=== PATIENT | male | born 1990 | race Caucasian/White ===

== ENCOUNTER 2020-07-30 09:18 | Emergency (ER) | payer MEDICAID, OTHER, SELFPAY ==
[~2020-07-30] VITALS: Ht 177.8 cm; Wt 123.5 kg
[2020-07-30] MEDS ORDERED: EFFE150C2 PO (09:25)
[2020-07-30] MEDS ORDERED: methylPREDNISolone 125MG 2ML VIAL IV ONE (10:15)
[2020-07-30] MEDS ORDERED: diphenhydrAMINE 50MG/ML VIAL (J1200) IV ONE (10:15)
[2020-07-30] MEDS ORDERED: FAMOTIDINE INJ 20MG/2ML VIAL (S0028 PER 1) IVP ONE (10:15)
[2020-07-30 13:15] VITALS: BP 112/58
== END 2020-07-30 14:25 | disposition home or self-care (01) ==
LOC: M ED 09:18
DX: T78.40XA Allergy, unspecified, initial encounter (principal); Y92.9 Unspecified place or not applicable; Y93.9 Activity, unspecified; F41.9 Anxiety disorder, unspecified; Z79.899 Other long term (current) drug therapy
CPT/HCPCS: 96374; 96375; 99285; J1200; J2930

== ENCOUNTER 2021-06-23 10:45 | Emergency (ER) | payer OTHER, SELFPAY ==
[~2021-06-23] VITALS: Ht 177.8 cm; Wt 115.9 kg
[~2021-06-23 10:45] MED LIST: EFFE150C2 PO
--- OUTSIDE RECORDS SUMMARY | 2021-06-23 10:53 | CCD ---
Author Author [facility] Organization [facility] Address Unknown Phone Unavailable Care Team Providers Care Friend Of The Court Name Role Phone Genie Vigil COTTON PICKER Unavailable Unavailable Genie Vigil COTTON PICKER Unavailable Unavailable Genie Vigil COTTON PICKER Unavailable Unavailable Genie Vigil COTTON PICKER Unavailable Unavailable Genie Vigil COTTON PICKER Unavailable Unavailable Genie Vigil COTTON PICKER Unavailable Unavailable Genie Vigil COTTON PICKER Unavailable Unavailable Genie Vigil COTTON PICKER Unavailable Unavailable Genie Vigil COTTON PICKER Unavailable Unavailable Genie Vigil COTTON PICKER Unavailable Unavailable Genie Vigil COTTON PICKER Unavailable Unavailable Genie Vigil COTTON PICKER Unavailable Unavailable Genie Vigil COTTON PICKER Unavailable Unavailable Genie Vigil COTTON PICKER Unavailable Unavailable Yaritza, Genie COTTON PICKER Unavailable Unavailable Yaritza, Genie COTTON PICKER Unavailable Unavailable Yaritza, Genie COTTON PICKER Unavailable Unavailable Yaritza, Genie COTTON PICKER Unavailable Unavailable Yaritza, Genie COTTON PICKER Unavailable Unavailable Yaritza, Genie COTTON PICKER Unavailable Unavailable Yaritza, Genie COTTON PICKER Unavailable Unavailable Yaritza, Genie COTTON PICKER Unavailable Unavailable Yaritza, Genie COTTON PICKER Unavailable Unavailable Ayritza, Genie COTTON PICKER Unavailable Unavailable Yaritza, Genie COTTON PICKER Unavailable Unavailable Yaritza, Genie COTTON PICKER Unavailable Unavailable Yaritza, Genie COTTON PICKER Unavailable Unavailable Yaritza, Genie COTTON PICKER Unavailable Unavailable Yaritza, Genie COTTON PICKER Unavailable Unavailable Yaritza, Genie COTTON PICKER Unavailable Unavailable Yaritza, Genie COTTON PICKER Unavailable Unavailable Yaritza, Genie COTTON PICKER Unavailable Unavailable Yaritza, Genie COTTON PICKER Unavailable Unavailable Yaritza, Genie COTTON PICKER Unavailable Unavailable Yaritza, Genie COTTON PICKER Unavailable Unavailable Yaritza, Genie COTTON PICKER Unavailable Unavailable Hayden Joy MD Unavailable Unavailable Morgan, August COATES Unavailable Unavailable Eddie, August COATES Unavailable Unavailable August Morgan MD Unavailable Unavailable Morgan, August COATES Unavailable Unavailable Morgan, August COATES Unavailable Unavailable Morgan, August COATES Unavailable Unavailable Sissy, A Fanny PA Unavailable Unavailable Sissy, A Fanny PA Unavailable Unavailable Sissy, A Fanny PA Unavailable Unavailable Sissy, A Fanny PA Unavailable Unavailable Sissy, A Fanny PA Unavailable Unavailable Sissy, A Fanny PA Unavailable Unavailable Sissy, A Fanny PA Unavailable Unavailable Sissy, A Fanny PA Unavailable Unavailable Sissy, A Fanny PA Unavailable Unavailable Sissy, A Fanny PA Unavailable Unavailable Sissy, A Fanny PA Unavailable Unavailable Sissy, A Fanny PA Unavailable Unavailable Sissy, A Fanny PA Unavailable Unavailable Sissy, A Fanny PA Unavailable Unavailable Sissy, A Fanny PA Unavailable Unavailable Sissy, A Fanny PA Unavailable Unavailable Sissy, A Fanny PA Unavailable Unavailable Sissy, A Fanny PA Unavailable Unavailable Sissy, A Fanny PA Unavailable Unavailable Sissy, A Fanny PA Unavailable Unavailable Sissy, A Fanny PA Unavailable Unavailable Sissy, A Fanny PA Unavailable Unavailable Sissy, A Fanny PA Unavailable Unavailable Sissy, A Fanny PA Unavailable Unavailable Sissy, A Fanny PA Unavailable Unavailable Sissy, A Fanny PA Unavailable Unavailable Sissy, A Fanny PA Unavailable Unavailable Sissy, A Fanny PA Unavailable Unavailable Sissy, A Fanny PA Unavailable Unavailable Sissy, A Fanny PA Unavailable Unavailable Sissy, A Fanny PA Unavailable Unavailable Sissy, A Fanny PA Unavailable Unavailable Sissy, A Fanny PA Unavailable Unavailable Sissy, A Fanny PA Unavailable Unavailable Sissy, A Fanny PA Unavailable Unavailable Sissy, A Fanny PA Unavailable Unavailable Sissy, A Fanny PA Unavailable Unavailable Sissy, A Fanny PA Unavailable Unavailable Sissy, A Fanny PA Unavailable Unavailable Sissy, A Fanny PA Unavailable Unavailable Sissy, A Fanny PA Unavailable Unavailable Sissy, A Fanny PA Unavailable Unavailable Sissy, A Fanny PA Unavailable Unavailable Sissy, A Fanny PA Unavailable Unavailable Sissy, A Fanny PA Unavailable Unavailable Sissy, A Fanny PA Unavailable Unavailable Sissy, A Fanny PA Unavailable Unavailable Sissy, A Fanny PA Unavailable Unavailable Sissy, A Fanny PA Unavailable Unavailable Sissy, A Fanny PA Unavailable Unavailable Sissy, A Fanny PA Unavailable Unavailable Sissy, A Fanny PA Unavailable Unavailable Sissy, A Fanny PA Unavailable Unavailable Re-disclosure Warning The records that you are about to access may contain information from federally-assisted alcohol or drug abuse programs. If such information is present, then the following federally mandated warning applies: This information has been disclosed to you from records protected by federal confidentiality rules (42 CFR part 2). The federal rules prohibit you from making any further disclosure of this information unless further disclosure is expressly permitted by the written consent of the person to whom it pertains or as otherwise permitted by 42 CFR part 2. A general authorization for the release of medical or other information is NOT sufficient for this purpose. The Federal rules restrict any use of the information to criminally investigate or prosecute any alcohol or drug abuse patient.The records that you are about to access may contain highly sensitive health information, the redisclosure of which is protected by Article 27-F of the [facility] Public Health law. If you continue you may have access to information: Regarding HIV / AIDS; Provided by facilities licensed or operated by the [facility] Office of Mental Health; or Provided by the [facility] Office for People With Developmental Disabilities. If such information is present, then the following [facility] mandated warning applies: This information has been disclosed to you from confidential records which are protected by state law. State law prohibits you from making any further disclosure of this information without the specific written consent of the person to whom it pertains, or as otherwise permitted by law. Any unauthorized further disclosure in violation of state law may result in a fine or long-term sentence or both. A general authorization for the release of medical or other information is NOT sufficient authorization for further disc losure. Allergies and Adverse Reactions Type Description Substance Reaction Status Data Source(s ) Propensity to adverse reactions PHENERGAN PHENERGAN muscle stiffness and twitching [facility] Drug allergy fluoxetine fluoxetine headaches [facility] Drug allergy promethazine promethazine dystonic reaction MO [facility] Family History Family Member Name Family Member Gender Family Member Status Date o f Status Description Data Source(s) Unknown Condition [facility] Unknown Condition [facility] Unknown Condition [facility] Unknown Condition [facility] Unknown Condition [facility] Unknown Condition [facility] Unknown Condition [facility] Unknown Condition [facility] Encounters Encounter Providers Location Date Indications Data Source(s ) Emergency Attender: August Morgan MDConsultant: Genie Vigil NP 12/07/2020 02:57:00 PM EDT - 12/07/2020 04:11:00 PM EDT [facility] Patient discharged. Emergency Attender: Hayden Joy MD 08/13 12:08:00 AM EST - 08/26/2020 03:13:00 AM EST SOB, NO TASTE OR SMELL,R/O COVID [facility] SOB, NO TASTE OR SMELL,R/O COVID Patient discharged. Outpatient Attender: Fanny Cervanteserrer: Fanny SALDIVAR 05/10/2020 08:04:00 AM EDT - 05/10/2020 08:41:00 AM EDT [facility] Immunizations Vaccine Date Status Description Data Source(s) COVID-19 VACCINE Pfizer 05/30/2021 12:00:00 AM EDT completed [facility] Vaccine Series Complete: NOThis Data was Submitted to [facility] Via [employer]. Medications Medication Brand Name Start Date Product Form Dose Route Admi nistrative Instructions Pharmacy Instructions Status Indications Reaction Description Data Source(s) 24 HR venlafaxine 150 MG Extended Releas e Oral Capsule Venlafaxine (Effexor Xr) 150 mg capsule,extended release 24hr Venlafaxine (Effexor Xr) 150 mg capsule,extended release 24hr 07/28/2020 02:57:23 PM EST [address] [facility] Arm Brace (Wrist Brace Large) [facility] 05/10/2020 08:40:13 AM EDT [address] [facility] Arm Brace (Wrist Brace Large) [facility] 05/10/2020 08:40:13 AM EDT [address] [facility] Famotidine 40 MG Oral Tablet Famotidine 05/10/2020 08:39:41 AM EDT 40 MG completed [facility] Famotidine 40 MG Oral Tablet Famotidine 05/10/2020 08:39:41 AM EDT 40 MG active [facility] meloxicam 15 MG Oral Tablet Meloxicam Meloxicam 05/10/2020 08:37 :53 AM EDT MG [address] [facility] meloxicam 15 MG Oral Tablet Meloxicam Meloxicam 05/10/2020 08:37 :53 AM EDT MG completed [facility] 24 HR venlafaxine 150 MG Extended Releas e Oral Capsule Venlafaxine (Effexor Xr) 150 mg capsule,extended release 24hr Venlafaxine (Effexor Xr) 150 mg capsule,extended release 24hr 04/13/2020 02:44:16 PM EDT 150 MG [facility] cefpodoxime 200 MG Oral Tablet Cefpodoxime Cefpodoxime 05/29/2019 11:08:38 AM EDT 200 MG completed [facility] cefpodoxime 200 MG Oral Tablet Cefpodoxime Cefpodoxime 05/29/2019 11:08:38 AM EDT 200 MG [facility] Azithromycin 500 MG Oral Tablet [Zithrom ax] Azithromycin (Zithromax) 500 mg tablet Azithromycin (Zithromax) 500 mg tablet 05/29/2019 11:06:46 AM ED T 500 MG completed [facility] Azithromycin 500 MG Oral Tablet [Zithrom ax] Azithromycin (Zithromax) 500 mg tablet Azithromycin (Zithromax) 500 mg tablet 05/29/2019 11:06:46 AM ED T 500 MG completed [facility] Insurance Providers Payer name Policy type / Coverage type Policy ID Covered democrat ID Covered democrat's relationship to murphy Policy Murphy Plan Information SELF PAY COLE PAY Patient COLE PAY POMCO [id number] SP [id number] LUCERO [id number] SP [id number] [id number] [id number] SP [id number] UNHC AMERICHOICE XIX -[id number] 18 [id number] [place] [id number] 18 [id number] [place] [id number] S [id number] MEDICAID [id number] SP [id number] SELF PAY UNAVAILABLE UNAVAILA BLE UNHC COMMUNITY PLAN MCDO [id number] SP [id number] [facility](MCA[facility]) P [id number] S [id number] [facility]) P [id number] S [id number] [facility]) P UNAVAILABLE S UNAVAILABLE [facility] [id number] SP [id number] MEDICAID -O/P EMERGENCY ROOM [id number] SELF PAY ONLY [id number] SP [id number] Problems, Conditions, and Diagnoses Code Display Name Description Problem Type Effective Dates Data Source(s) [id number] Allergy, unspecified, initial encounter Allergy, unspecified, initial encounter Diagnosis 12/07/2020 02:57:00 PM EDT [facility] L509 Urticaria, unspecified Urticaria, unspecified Diagnosi s 12/07/2020 02:57:00 PM EDT [facility] R21 Rash and other nonspecific skin eruption Rash and other nonspecific skin eruption Diagnosis 12/07/2020 02:57:00 PM EDT [facility] Surgeries/Procedures Procedure Description Date Indications Data Source(s) Plain chest X-ray (procedure) 08/26/2020 12:10:[address] [facility] 08/26/2020 12:00:00 AM EST L [facility] Influenza-Like Illness (PCR) 08/26/2020 12:00:[address] [facility] Results ID Date Data Source [id number] 12/07/2020 02:57:00 PM EDT [facility] 1 OrderSheet [facility] Emergency Department [address] [place] [address] Phone #: ext- [phone] 12/07/2020 14:56 Patient: CHELA GARCIA Sex: M : 1990 Age: 30yWEIGHT:113.3 kg (S) HEIGHT:70 inches (S) BMI:35.8ALLERGIES: PhenothiazinesCHIEF COMPLAINT: allergic rx, itchingDIAGNOSIS: Urticaria, Immune hypersensitivity reactionLAB ORDERSOrder Description Priority Entered Acknowledged InitialedDIAGNOSTIC STUDY ORDERSOrder Description Priority Entered Acknowledged InitialedMEDICATION/IV/DRIP/FLUID ORDERSOrder Description Priority Entered Acknowledged InitialedSOLU-Medrol IVP 15:02 12/07/2020 15:05 Glenis,125 mg August Morgan R.N.Pepcid IVPB 20 15:02 12/07/2020 15:10 Glenis,mg/50mL (NOW x1, August Morgan R.N.Infuse over 30minutes.)EPINEPHrine IM 15:03 12/07/2020 15:10 Glenis1:1000 (1mg/1mL) August Morgan R.N.Amp: 0.3 mg (NOWx1, HIGH ALERTMEDICATION)NS IV 1000 mL 15:04 12/07/2020 15:11 Glenis,Bolus: : Bolus 1000 August Morgan R.N.mL (X1)GENERAL ORDERSOrder Description Priority Entered Acknowledged Initialed[Electronically signed by Frank Galvin R.N. (16:11 12/07/2020)][Electronically signed by August Morgan (16:15 12/07/2020)][Elect ronically locked by Frank Galvin R.N. (16:12/07/2020)] Name Value Range Interpretation Code Description Data Nelly rce(s) Supporting Document(s) ID Date Data Source [id number] 12/07/2020 02:57:00 PM EDT [facility] 1 Medication Reconciliation Report [facility] Emergency Department [address] [place] [address] Phone #: [phone] soc- [phone] 12/07/2020 14:56 Patient: CHELA GARCIA Sex: M : 1990 Age: 30yWeight: 113.3 kgHeight/Length: 70 in.BMI: 35.8ALLERGIES: PhenothiazinesThe patient's Home Medications are listed below:THE FOLLOWING MEDICATIONS NEED TO BE RECONCILED: Effexor XR OralThe source(s) of the original Home Medication information:Not obtained.The following Medications were given to the patient in the Emergency Department:Solu-Medrol [IVP] IVP 125 mg, administered: 15:05 1Pepcid [IVPB] IVPB bolus 0, then 20 mg 100 mL/hr, administered: 15:10 1Epinephrine [IM] IM 0.3 mg, administered: 15:10 12/07/2020NS [IV] IV Fluids bolus 0, then 1000 mL/hr, administered: 15:11 12/07/2020The following Medications were prescribed to the patient:prednisone 20 mg tablet Take 2 tablet once a day -- Dispense 10 tablet. Refills: 0. Substitutionpermitted.Pharmacy - [facility] [phone] [facility] [address] [place] [address]. FaxNumber: [phone].EpiPen 0.3 mg/0.3 mL injection, auto-injector Administer 1 pen injector single dose for 1 days --Dispense 2 Pen injector. Refills: 0. Substitution permitted.Pharmacy - [facility] [address] [place] [address] ; [place] [address]. . -- August Morgan Name Value Range Interpretation Code Description Data Nelly rce(s) Supporting Document(s) ID Date Data Source [id number] 12/07/2020 02:57:00 PM EDT [facility] 1 Medication Administration Record [facility] Emergency Department [address] [place] [address] Phone #: ext- [phone] 12/07/2020 14:56 Patient: CHELA GARCIA Sex: M : 1990 Age: 30yWeight: 113.3 kgHeight/Length: 70 inBMI: 35.8ALLERGIES: Ph enothiazines Date/Time Medication Administered Medication OrderedGiven SOLU-MEDROL [IVP] SOLU-Medrol IVP 125 mg15:05 12/07/2020 (METHYLPREDNISOLONE SODIUMFrank Galvin R.N. SUCC) Dose: 125 mg IVP Site: #1 left forearmStart PEPCID [IVPB] Pepcid IVPB 20 mg/50mL (NOW15:10 12/07/2020 Dose: 20 mg IVPB x1, Infuse over 30 minutes.)Frank Galvin R.N. Rate: 100 mL/hr over 30 minute(s)---- Dispensed: 50 mL bagStop Site: #1 left [id number] 12/07/2020Frank Galvin R.N.Given EPINEPHRINE [IM] EPINEPHrine IM 1:1000 (1mg/1mL)15:10 12/07/2020 Dose: 0.3 mg IM Amp: 0.3 mg (NOW x1, HIGHFrank Galvin R.N. ALERT ME DICATION)Start NS [IV] NS IV 1000 mL Bolus: : Bolus [id number] 12/07/2020 Dose: IV Fluids mL (X1)Frank Galvin R.N. Rate: 1000 mL/hr over 60 minute(s)---- Dispensed: 1000 mL bagStop Site: #1 left [id number] 12/07/2020Frank Galvin R.N. Name Value Range Interpretation Code Description Data Nelly rce(s) Supporting Document(s) ID Date Data Source [id number] 12/07/2020 02:57:00 PM EDT [facility] 1 General Instructions [facility] Emergency Department [address] [place] [address] Phone #: ext- [phone] 12/07/2020 14:56 Patient: CHELA GARCIA Sex: M : 1990 Age: 30yAcute urticaria secondary to unknown cause.Generalized allergic reaction with hives of unknown cause.INSTRUCTIONSWarnings: GENERAL WARNINGS: Return or contact your physician immediately if your conditionworsens or changes unexpectedly, if not improving as expected, or if other problems arise.Prescription Medications:prednisone 20 mg tablet Take 2 tablet once a day -- Dispense 10 tablet. Refills: 0. Substitutionpermitted.Pharmacy - [facility] [phone] - [address] [place] [address]. Phone: .EpiPen 0.3 mg/0.3 mL injection, auto-injector Administer 1 pen injector single dose for 1 days --Dispense 2 Pen injector. Refills: 0. Substitution permitted.Pharmacy - [facility] [address] [address]. FaxNumber: .Understanding of the discharge instructions verbalized by patient.Follow-up with: Fanny Sheehan, , , [facility], , [place], [address] Follow up in two days as needed. Call for an appointment. ADDITIONAL INFORMATIONHives (Adult)Hives are pink or red bumps on the skin. These bumps are also known as wheals. The bumps canitch, burn, or sting. Hives can occur anywhere on the body. They vary in size and shape and can formin clusters. Individual hives can appear and go away quickly. New hives may develop as old onesfade. Hives are common and usually harmless. They are not contagious. Occasionally, hives are asign of a serious allergy.Hives are often caused by an allergic reaction. They may occur from: Certain foods, such as shellfish, nuts, tomatoes, or berries 2 General Instructions [facility] Emergency Department [address] [place] [address] Phone #: ext- [phone] 12/07/2020 14:56 Patient: CHELA GARCIA Sex: M : 1990 Age: 30y Contact with something in the environment, such as pollens, animals, or mold Certain medicines Sun or cold air Viral infections, such as a cold, the flu, or strep throatIf the hives continue to come and go over many weeks without any other symptoms (chronic hives),the cause may be very hard to figure out.You may be prescribed medicines to ease swelling and itching. Follow all instructions when usingthese medicines. The hives will usually fade in a few days. But they can last for weeks or months.Home careFollow these tips: Try to find the cause of the hives and eliminate it. Discuss possible causes with your healthcare provider. Your healthcare provider may ask you to keep track of the food you eat and your lifestyle to help find the cause of the hives. Don't scratch the hives. Scratching will delay healing. To reduce itching, apply cool, wet compresses to the skin. Dress in soft, loose cotton clothing. Don't bathe in hot water. This can make the itching worse. Apply an ice pack or cool pack wrapped in a thin towel to your skin. This will help reduce redness and itching. But if your hives were caused by exposure to cold, then do not apply more cold to them. You may use over-the counter antihistamines to reduce itching. Some older antihistamines, such as diphenhydramine and chlorpheniramine, are inexpensive. But they need to be taken often and may make you sleepy. They are best used at bedtime. Don't use diphenhydramine if you have glaucoma or have trouble urinating because of an enlarged prostate. Newer antihistamines, such as loratadine, cetirizine, levocetirizine, and fexofenadine, are generally more expensive. But they tend to have fewer side effects. They can be taken less often. Another type of antihistamine is used to treat heartburn. This type includes ranitidine, nizatidine, famotidine, and cimetidine. These are sometimes used along with the above antihistamines if a single medicine is not working. If the hives are severe and you do not respond well to other medicines, you may be given a steroid, such as prednisone, to take for a short time. Follow all instructions carefully when taking this medicine. Tell your healthcare provider about any side effects. 3 General Instructions [facility] Emergency Department [address] [place] [address] Phone #: ext- [phone] 12/07/2020 14:56 Patient: CHELA GARCIA Sex: M : 1990 Age: 30yFollow-up careFollow up with your healthcare provider if your symptoms don't get better in 2 days. Ask your providerabout allergy testing if you have had a severe reaction or have had several episodes of hives. Allergytesting may help figure out what you are allergic to. You may need blood tests, a urine test, or skintests.When to seek medical adviceCall your healthcare provider right away if any of these occur: Fever of 100.4F (38.0C) or higher, or as directed by your healthcare provider Redness, swelling, or pain Foul-smelling fluid coming from the rashCall 911Call 911 if any of the following occur: Swelling of the face, throat, or tongue Trouble breathing or swallowing Dizziness, weakness, or fainting 1999- [address] [employer]. [address] [place] [address]. All rights reserved. This information is not intended as asubstitute for professional medical care. Always follow your healthcare professional's instructions.General Allergic ReactionsAn allergic reaction is a set of symptoms caused by an allergen. An allergen is something that causesyour immune system to react abnormally. It releases various chemicals. These include histamin e.Histamine causes swelling and itching. An allergic reaction may affect the entire body. This is called ageneral allergic reaction. Often symptoms affect only one part of the body. This is called a localallergic reaction.You are having an allergic reaction. Almost anything can cause one. Different people are allergic todifferent things. It is usually something that you ate or swallowed, came into contact with by getting orputting it on your skin or clothes, or something you breathed in the air. This can be very annoying andsometimes scary.Most people think of allergic reactions when they have a rash or itchy skin. Other symptoms caninclude: Itching of the eyes, nose, and roof of the mouth 4 General Instructions [facility] Emergency Department [address] [place] [address] Phone #: ext- [phone] 12/07/2020 14:56 Patient: CHELA GARCIA Sex: M : 1990 Age: 30y Runny or stuffy nose Watery eyes Sneezing or coughing A blocked feeling in the ear Red, raised, itchy rash called hives Red and purple spots Rash, redness, welts, blisters Itching, burning, stinging, pain Dry, flaky, cracking, scaly skinSevere symptoms include: Swelling of the face, lips, or other parts of the body Hoarse voice Trouble swallowing, feeling like your throat is closing Trouble breathing, wheezing Nausea, vomiting, diarrhea, stomach cramps Feeling faint or lightheaded, rapid heart rateSometimes the cause may be obvious. But there are so many things that can cause a reaction thatyou may not be able to figure it out. The most important things to help find your allergen are toremember: When it started What you were doing at the time or just before that What activities you were involved in If you were exposed to anything newBelow are some common causes of allergies. Some of these can cause severe general allergicreactions. Others can cause mild to moderate symptoms. But remember that almost anything cancause a reaction. You may not even be aware that you came into contact with one of these things: Dust, mold, pollen Plants (common ones are poison yovany and poison oak, but there are many others) 5 General Instructions [facility] Emergency Department [address] [place] [address] Phone #: ext- [phone] 12/07/2020 14:56 Patient: CHELA GARCIA Sex: Tu : 1990 Age: 30y Animals Foods such as shrimp, shellfish, peanuts, milk products, gluten, and eggs Food colorings, flavorings, and additives Insect bites or stings such as bees, mosquitoes, fleas, and ticks Medicines such as penicillin, sulfa medicines, aspirin, and ibuprofen. But any medicine can cause a reaction. Jewelry such as nickel or gold. This can be new, or something you've worn for a while, including zippers and buttons. Latex such as in gloves, clothes, toys, balloons, or some tapes. Some people allergic to latex may also have problems with foods like bananas, avocados, kiwi, papaya, or chestnuts. Lotions, perfumes, cosmetics, soaps, shampoos, skincare products, nail products Chemicals or dyes in clothing, linen, technical asst, hair dyes, soaps, iodineMany viruses and common colds can cause a rash that is not an allergic reaction. Sometimes it ishard to tell the difference between allergies, sensitivity, or an intolerance to something. This isespecially true with food. Many things can cause diarrhea, vomiting, stomach cramps, and skinirritation.Home careThe goal of treatment is to help relieve the symptoms and get you feeling better. The rash will usuallyfade over several days. But it can sometimes last a couple of weeks. Over the next couple of days,there may be times when it gets a little worse, and then better again. Here are some things to do: If you know what you are allergic to, stay away from it. Future exposures may cause similar or sometimes worse symptoms. 6 General Instructions [facility] Emergency Department [address] [place] [address] Phone #: ext- [phone] 12/07/2020 14:56 Patient: CHELA GARCIA Sex: M : 1990 Age: 30y Don't wear tight clothing and stay away from anything that heats up your skin such as hot showers or baths, and direct sunlight. Heat will make itching worse. An ice pack will relieve local areas of intense itching and redness. To make an ice pack, put ice cubes in a plastic bag that seals at the top. Wrap it in a thin, clean towel. Don't put the ice directly on the skin because it can damage the skin. Oral diphenhydramine is an jngf-ckk-prgysux antihistamine sold at pharmacies and grocery stores. Unless a prescription antihistamine was given, diphenhydramine may be used to reduce itching if large areas of the skin are involved. It may make you sleepy. So be careful using it in the daytime or when going to school, working, or driving. Note: Don't use diphenhydramine if you have glaucoma or if you are a man with trouble urinating because of an enlarged prostate. There are other antihistamines that won't make you so sleepy. These are good choices for daytime use. Ask your healthcare provider or pharmacist for suggestions. Don't use diphenhydramine cream on your skin unless prescribed. It may cause a worse reaction in some people. To help prevent an infection, don't scratch the affected area. Scratching may worsen the reaction and damage your skin. It can also lead to an infection. Always check the affected areas for signs of an infection. Call your healthcare provider and ask what you can use to help decrease the itching. To decrease your exposure to allergens, try the following: o Use heat-steam to clean your home. o Use high-efficiency particulate (HEPA) vacuums and filters. o Stay away from food and pet triggers. o Kill any cockroaches and use pest control to keep further infestations from happening. o Clean your house often.Follow-up careFollow up with your healthcare provider, or as advised. If you had a severe reaction today, or if youhave had several mild to medium allergic reactions in the past, ask your provider about allergytesting. This can help you find out what you are allergic to. If you had a severe reaction that includeddizziness, fainting, or trouble breathing or swallowing, ask your provider about carryingauto-injectable epinephrine.Call [phone] General Instructions [facility] Emergency Department [address] [place] [address] Phone #: ext- [phone] 12/07/2020 14:56 Patient: GABRIELLARuthieCHELA Sex: Tu : 1990 Age: 30yCall 911 if any of these occur: Trouble breathing or swallowing, wheezing Cool, moist, pale skin Shortness of breath Hoarse voice or trouble speaking Confusion Very drowsy or trouble awakening Fainting or loss of consciousness Rapid heart rate Feeling of dizziness or weakness or a sudden drop in blood pressure Feeling of doom Feeling lightheaded Severe nausea or vomiting, or diarrhea Seizure Swelling in the face, eyelids, lips, mouth, throat, or tongue DroolingWhen to seek medical adviceCall your healthcare provider or get medical care right away if any of these occur: Spreading areas of itching, redness, or swelling Nausea or stomach cramps or abdominal pain Continuing or recurring symptoms Spreading areas of redness, swelling, or itching Signs of infection at the affected site: o Spreading redness o Increased pain or swelling o Fluid or colored drainage from the site 8 General Instructions [facility] Emergency Department [address] [place] [address] Phone #: ext- [phone] 12/07/2020 14:56 Patient: CHELA GARCIA Sex: M : 1990 Age: 30y o Fever of 100.4F (38C) or above lasting for 24 to 48 hours, or as directed by your provider [employer]. [address] [place] [address]. All rights reserved. This information is not intended as asubstitute for professional medical care. Always follow your healthcare professional's instructions. You have been given the following additional information: Hives (Adult) General Allergic Reactions(Electronically signed by August Morgna 12/07/2020 16:15) Name Value Range Interpretation Code Description Data Nelly rce(s) Supporting Document(s) ID Date Data Source [id number] 12/07/2020 02:57:00 PM EDT [facility] 1 Clinical Report - Nurses [facility] Emergency Department [address] [place] [address] Phone #: ext- [phone] 12/07/2020 14:56 Patient: CHELA GARCIA Sex: M : 1990 Age: 30yTRIAGEArrived by private vehicle. Historian: patient.Acuity: LEVEL 2.Chief Complaint: ALLERGIC REACTION, SKIN RASH, ITCHING and HIVES and SWELLING andDIFFICULTY BREATHINGOnset. (45 minutes ago). 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 (x 4).SEPSIS SCREEN: SIRS SCREEN NEGATIVE. SEPSIS SCREEN NEGATIVE. No suspected or confirmedsigns of infection present.JOLEEN COMA SCORE: 15- eyes open- spontaneous (4); best verbal response- oriented (5); bestmotor response- obeys commands (6). --15:06 12/07/20 Saleem Sandoval RN14:59 12/07/20. BP: 100/57 taken manually. MAP: 71. HR: 130. RR: 22. O2 saturation: 94% on room air.Temp: 96.8 F. Pain level now: 0/10. --15:06 12/07/20 Saleem Sandoval RN.Weight: 113.3 kg stated. Height/Length: 70 inches Per Patient. BMI: 35.8. --14:59 12/07/20 Saleem Sandoval RN.MedicationsEffexor XR Oral. --15:03 12/07/20 Saleem Sandoval RN.AllergiesPhenothiazines. --15:03 12/07/20 Saleem Sandoval RN.HistoryPAST MEDICAL HX: Immunizations: up-to-date.SOCIAL HX: Never smoker. Light tobacco smoker (cigarette)- less than 1/2 a pack per day. No alcoholuse or drug use. He was offered HIV testing but declined and hepatitis C testing but declined. He hasnot traveled outside the [place]Infectious disease exposure: No infectious disease exposure. The patient was not exposed to Coronavirus.SELF HARM ASSESSMENT: Self harm assessment was performed. The patient answered "no" to thequestion(s) "Have you recently felt down, depressed, or hopeless?", "Do you have thoughts of harming or 2 Clinical Report - Nurses [facility] Emergency Department [address] [place] [address] Phone #: ext- [phone] 12/07/2020 14:56 Patient: CHELA GARCIA Sex: M : 1990 Age: 30y killing yourself?", "Do you have a plan for harming or killing yourself?", "Have you recently had thoughts about harming or killing others?", "Do you have any dangerous items in your possession?", "Have you noticed less interest or pleasure in doing things?", "Are you here because you tried to hurt yourself?" and "Have you ever tried to hurt yourself before today?". ABUSE ASSESSMENT: No report of abuse. NUTRITIONAL RISK ASSESSMENT: The nutritional risk assessment revealed no deficiencies. FUNCTIONAL ASSESSMENT: Functional assessment: no impairments noted. LEARNING NEEDS ASSESSMENT: The learning needs assessment revealed no barriers. FALL RISK ASSESSMENT: Fall risk assessment completed. No risk factors identified. SKIN INTEGRITY ASSESSMENT: Skin integrity risk assessment completed. No skin integrity risk identified. --15:06 12/07/20 Saleem Sandoval RN. FAMILY HX: No significant family medical history. --15:17 12/07/20 August Morgan. Interventions To treatment room. --15:06 12/07/20 Saleem Sandoval RN.PHYSICAL ASSESSMENTGENERAL / NEURO / PSYCH: Alert. Appears anxious and in distress. Oriented X 4.HEENT: Pupils equal, round and reactive to light.RESPIRATORY: Respirations not labored.CVS: Cardiac rhythm: sinus tachycardia; (134).GI / : Abdomen nontender.SKIN: Skin rash present. Urticaria present. Increased warmth present. Erythema present. --15: Frank Galvin R.N. 15:17 12/07/20. BP: 123/78. MAP: 93. HR: 114. RR: 18. O2 saturation: 99%. Temp: deferred. Pain level now: 0/10. --15:20 12/07/20 Frank Galvin R.N.NURSING PROGRESS NOTES15:12/07/2020 Site #1 started via IV in the left forearm with an 20g angiocath; one attempt. --15: Frank Galvin R.N. 15:12/07/2020 Solu-Medrol (methylPREDNISolone Sodium Succ) IVP 125 mg given over 3 minute(s) via site #1. --15:12/07/20 Frank Galvin R.N. advertising layout worker, pulse oximeter and NIBP monitor placed on patient; wheelchair driver- Lead II; monitor alarms on. Patient gowned. Head of bed elevated. Reassurance given. Call light placed in reach. 3 Clinical Report - Nurses [facility] Emergency Department [address] [place] [address] Phone #: ext- [phone] 12/07/2020 14:56 Patient: CHELA GARCIA Sex: M : 1990 Age: 30y Side rails up x 2. Bed placed in lowest position. Brakes of bed on. Patient ready for evaluation- ED physician notified. --15:07 12/07/20 Saleem Sandoval RN 15:10 12/07/2020 Started 20 mg of Pepcid IVPB in bag #1 50 mL; at 100 mL/hr over 30 minute(s) via site #1. --15:10 12/07/20 Frank Galvin R.N. 15:10 12/07/2020 Epinephrine IM 0.3 mg given. --15:10 12/07/20 Frank Galvin R.N. 15:11 12/07/2020 Started bag #1 1000 mL IV Fluids NS; at 1000 mL/hr over 60 minute(s) via site #1 --15:11 12/07/20 Frank Galvin R.N. 15:29 12/07/20. BP: 140/80. MAP: 100. HR: 96. RR: 27. O2 saturation: 98%. --15:29 12/07/20 [facility], [facility] Tech1 16:06 12/07/2020 Pepcid IVPB via IV site #1 Discontinued: bag #1 upon discharge. Total amount infused: 50 mL. --16:06 12/07/20 Frank Galvin R.N. 16:06 12/07/2020 IV Fluids NS via IV site #1 Discontinued: bag #2 infused upon discharge. Total amount infused: 800 mL. --16:06 12/07/20 Frank Galvin R.N.DISPOSITION / DISCHARGE No learning barriers present. Patient verbalized understanding. Written instructions provided in Dutch. The patient was discharged by the physician. He was discharged home. He left ambulatory and via private vehicle. Patient driving. --16:06 12/07/20 Frank Galvin R.N. 16:05 12/07/20. BP: 142/86. MAP: 104. HR: 84. RR: 16. O2 saturation: 99%. Temp: deferred. Pain level now: 0/10. --16:06 12/07/20 Frank Galvin R.N.Locked/Released at 12/07/2020 16:11 by Frank Galvin R.N. Name Value Range Interpretation Code Description Data Nelly rce(s) Supporting Document(s) ID Date Data Source [id number] 12/07/2020 02:57:00 PM EDT [facility] 1 Clinical Report - Physicians/Mid Levels [facility] Emergency Department [address] [place] [address] Phone #: ext- [phone] 12/07/2020 14:56 Patient: CHELA GARCIA [facility]#: [id number] Sex: M : 1990 Age: 30y Time Seen: 15:02 12/07/2020. Arrived- By private vehicle. Historian- patient.HISTORY OF PRESENT ILLNESS Chief Complaint: ALLERGIC REACTION and ITCHING. No cause has been identified. No recent medication, insect bite or food exposure. Was not recently exposed to poison yovany or poison oak. The patient has had a skin rash, itching and dizziness but not had swelling or trouble swallowing. No difficulty breathing or fainting episodes. This started just prio r to arrival and is still present. The patient was not assessed by EMS prior to arrival. The patient received treatment prior to arrival. (Patient was at work when he suddenly developed rash all over. felt lightheaded. Took 4 benadryl prior to arrival. no new exposure or new medications. 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 Similar symptoms previously. Patient has had similar symptoms several times. Recent medical care: Not recently seen/assessed.REVIEW OF SYSTEMSNo eye problems or irritation, sore throat or throat or cough. No chills, enlarged lymph nodes, headache,weakness or chest pa in. No palpitations, abdominal pain, vomiting, urinary frequency or fever. Nomuscle aches, photophobia, palpitations, diarrhea or nausea. No vomiting or weakness. The patient hashad skin rash. All other systems reviewed and are negative.PAST HISTORYSee nurses notes.SOCIAL HISTORYNever smoker.FAMILY HISTORYNo significant family medical history.ADDITIONAL NOTESThe nursing notes have been reviewed.PHYSICAL EXAMVital Signs: 12/07/2020 14:59 BP: 100/57. MAP: 71. HR: 130. RR: 22. O2 saturation: 94% on room air.Temp: 96.8 F. Pain level now: 0/10.Appearance: Alert. Oriented X3. No acute distress. (voice is clear). 2 Clinical Report - Physicians/Mid [facility] Emergency Department [address] [place] [address] Phone #: ext- [phone] 12/07/2020 14:56 [id number] Sex[facility] : 1990 Age: 30y Head and Neck: Normal external inspection. Eyes: Pupils equal, round and reactive to light. ENT: Ears normal. Pharynx normal. Voice normal. Neck: Neck supple. CVS: Tachycardia. Normal heart rhythm. Heart sounds normal. Respiratory: No respiratory distress. Painless inspiration. Breath sounds normal. No decreased air movement. Abdomen: Nontender. No organomegaly. Skin: No cyanosis. Skin warm and dry. No erythema or diaphoresis. Extremities: Normal external inspection. Extremities nontender. Skin: Urticaria. No rash. Skin rash. The rash is confluent and urticarial. The rash is generalized and rash present on the trunk. Rash present on the right upper extremity and left upper extremity. Not vesicular. Rash present on the left lower extremity. Neuro: Oriented X 3. No motor deficit. No sensory deficit.PROGRESS AND PROCEDURESCourse of Care: 15:18 12/07/20. Diffuse urticarial rash. No signs of anaphylaxis 15:34 12/07/20. Pulse is improved. heart rate of 88 bpm. Rash has significantly improved. No airway compromise 16:09 12/07/20. Complete resolution of rash. No tachycardia. BP is 123/78. Old medical records ordered. Disposition: Discharged. Condition: stable.CLINICAL IMPRESSION Acute urticaria secondary to unknown cause. Generalized allergic reaction with hives of unknown cause.INSTRUCTIONS Warnings: GENERAL WARNINGS: Return or contact your physician immediately if your condition worsens or changes unexpectedly, if not improving as expected, or if other problems arise. Prescription Medications: prednisone 20 mg tablet Take 2 tablet once a day -- Dispense 10 tablet. Refills: 0. Substitution permitted. Pharmacy - [facility] [id number] [facility] [address] [facility] [address] [place] [address] ; [place] [address]. . 3 Clinical Report - Physicians/Mid Levels [facility] Emergency Department [address] [place] [address] Phone #: ext- [phone] 12/07/2020 14:56 Patient: CHELA GARCIA Sex: M : 1990 Age: 30y EpiPen 0.3 mg/0.3 mL injection, auto-injector Administer 1 pen injector single dose for 1 days -- Dispense 2 Pen injector. Refills: 0. Substitution permitted. Pharmacy - [facility] [id number] [place] [address]. . Understanding of the discharge instructions verbalized by patient. Follow-up with: Fanny Sheehan, , , [facility], , [place], [address] Follow up in two days as needed. Call for an appointment.(Electronically signed by August Morgan 12/07/2020 16:15) Name Value Range Interpretation Code Description Data Nelly rce(s) Supporting Document(s) ID Date Data Source [id number] 08/26/2020 03:30:00 AM EST [facility] [address] [place] [address] [phone] NAME SEX PT STATUS ACCOUNT NUMBER CHELA GARCIA [facility] ER [id number] ORDERING PHYSICIAN LOCATION MEDICAL RECORD NO. Hayden Joy MD ER [id number] ATTENDING PHYSICIAN DATE OF DATE OF EXAM/TIME Fanny Sheehan RPA 1990 08/26/209 TYPE / EXAM Xray Chest One View REASON FOR EXAM cough, sob, loss of taste and smell Clinical History/Indication for Exam: cough, sob, loss of taste and smell RADIOGRAPH OF THE CHEST 1 VIEW INDICATION: cough, sob, loss of taste and smell COMPARISON: No relevant prior studies available. FINDINGS: Lungs: There are no active lung infiltrates. Pleural space: Unremarkable. No pneumothorax. Heart: Borderline cardiomegaly. Mediastinum: Unremarkable. Bones/joints: Unremarkable. Soft tissues: Bilateral nipple rings are noted. IMPRESSION: 1. No active lung infiltrates or pneumonia or Covid pneumonitis. 2. Borderline cardiomegaly. REPORT SIGNATURE ON FILE 08/26/2020 (03:30 Eastern Time ) Signed by: Cristian Rangel M.D. Reported By Cristian Rangel MD on 08/26/20329 Signed By Cristian Rangel MD on 08/26/20329 Date Time CC: Fanny Sheehan; Cristian Rangel MD Techn: PALHE Trans Dt/Tm: Trans by: DT Prt Dt/Tm: [id number]: Total DLP = 0.00 mGy-cm Fluoroscopy Time (in secs): Name Value Range Interpretation Code Description Data Nelly rce(s) Supporting Document(s) ID Date Data Source [id number] 08/26/2020 01:22:00 AM [facility] Amandeep Gabrielle is a rapid, automated qualita tive anddifferentiation of Influenza type A,B and [id number]-RT-PCR testNORMAL VALUE IS "NOT DETECTED".Limitations of the amandeep gabrielle Influenza A/B & [id number]-6dplzf method.Modifications to manufacturers recommendation and proceduresmay alter performance of the test.Negative results do not preclude Influenza A,B or SARS- ZBV7ulbqwmjpdy and should not be used as the sole basis fortreatment or other management decisions. Results from theCobas Gabrielle Influenza A/B & COV2 should be interpeted inconjunction with other laboratory and clinical dataavailable to the clinician.False negative results may occur if a specimen is improperlycollected, transported or handled. False negatives may occurif inadequate numbers of organisms are present in thespecimen.This test has not been evaluated for patients without signsand systoms of influenza and SARS-COV-2 infection.This assay has not been evaluated for patients receivingintranasal administered influenza vaccine.This assay has not been evaluated for immunocompromisedindividuals.This test cannot rule out diseases caused by other bacterialor viral pathogens.SARS-CoV-2 RNA Resp Ql SHRUTHI+probe Name Value Range Interpretation Code Description Data Nelly rce(s) Supporting Document(s) ID Date Data Source [id number] 08/26/2020 01:22:00 AM [facility] Amandeep Gabrielle is a rapid, automated qualita tive anddifferentiation of Influenza type A,B and QLTD-[id number]-[id number]-RT-PCR testNORMAL VALUE IS "NOT DETECTED".Limitations of the amandeep gabrielle Influenza A/B & PIPB-FIT-8fsqxk method.Modifications to manufacturers recommendation and proceduresmay alter performance of the test.Negative results do not preclude Influenza A,B or SARS- QYZ3bohzctllkn and should not be used as the sole basis fortreatment or other management decisions. Results from theCobas Gabrielle Influenza A/B & COV2 should be interpeted inconjunction with other laboratory and clinical dataavailable to the clinician.False negative results may occur if a specimen is improperlycollected, transported or handled. False negatives may occurif inadequate numbers of organisms are present in thespecimen.This test has not been evaluated for patients without signsand systoms of influenza and SARS-COV-2 infection.This assay has not been evaluated for patients receivingintranasal administered influenza vaccine.This assay has not been evaluated for immunocompromisedindividuals.This test cannot rule out diseases caused by other bacterialor viral pathogens.SARS-CoV-2 RNA Resp Ql SHRUTHI+probe Name Value Range Interpretation Code Description Data [facility] rce(s) Supporting Document(s) Extended hours FLU/COV2 NAAT GABRIELLE [facility] ID Date Data Source [id number] 08/26/2020 12:24:00 AM [facility] ED Physician Documentation NAME: CHELA GARCIA : 1990 AGE: 29 MR#: [id number] SERVICE DATE: 08/26/[address]: Hayden Joy MD PRIMARY CARE DR: Fanny Sheehan ROOM#: HPI (Adult, General) General Chief Complaint: Multi system (Adult) Stated Complaint: SOB, NO TASTE OR SMELL Resident LTC, travel outisde home, exposure to hot tubs:: No Time Seen by Provider: 08/26/20 00:10 Source: patient Exam Limitations: no limitations History of Present Illness Narrative: This is a pleasant 29M hx of KALA, GERD, tobacco us presents with cc of sob on exertion, loss of taste and smell that he more profoundly noticed today. States hedrank Mountain Dew and could not taste it. He also admits to back aches, myalgias, headaches. No sick contacts. He does mention that he was admitted this past July for a pneumonia and was concerned that he was developing similar symptoms. Denies chest pain, LE swelling, testosterone injections, cough. Has not taken anything for his symptoms. 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 History: Nursing Past Medical History Has Been Reviewed Allergies/Home Meds Allergies Allergy/AdvReac Type Severity Reaction Status Date / Time promethazine [From PHENERGAN] AdvReac Intermediate dystonic Verified 08/26/20 00:50 reaction fluoxetine AdvReac headaches Verified 08/26/20 00:50 Home Medications Medication Instructions Recorded Confirmed Last Taken Type venlafaxine 150 mg 150 mg PO DAILY #90 cap 07/28/20 08/26/20 08/25/20 07:00 Rx capsule,extended release 24 hr PMH (from Triage) Patient Medical History PMH Reviewed/Updated as Needed: Yes PMH/PSH from Triage: Medical History (Updated 08/26/20 @ 03:05 by Hayden Joy MD) Carpal tunnel syndrome on both sides (Medical) G56.03 Community acquired pneumonia (Medical) J18.9 05/2019 - [facility] Generalized anxiety disorder (Medical) F41.1 GERD without esophagitis (Medical 05/11/16) K21.9 Surgical History (Updated 02/04/19 @ 11:51 by [employer] MA) A ppendectomy (Surgical) History of - surgery (Surgical 10/30/14) -No Barretts,hadEG junction biopsy showed mild chronic inflammation History of colonoscopy (Surgical) 2010-normal Hx Drug Resistant Infections Hx MRSA: (Methicillin-resistant Staphylococcus aureus): No Hx VRE (Vancomycin-resistant enterococci): No Hx C.Diff: No Hx CRKP: No Hx Other Resistant Infection?: No Isolation: Standard precautions Hx Recent Travel Out of the country within 10 days (where): No Hx Fever: Yes Hx Fever with a rash?: No Nurse screening for coronavirus: Recent Travel outside the No country (where) Has patient experienced Yes coronavirus symptoms Coronavirus symptoms Shortness of breath,New loss of taste or smel experienced Social History Does patient have suicid al/homicidal thoughts or ideation?: No Are you in a relationship with/Does anyone hit you, yell/swear at you, steal from you?: No Substance Use Hx Alcohol Use: No Hx Substance Use: No Hx Substance Use Treatment: No Smoking Status: Current every day smoker Tobacco Use Years smoked:: 4 Hx Chewing Tobacco Use: No Vaccination History Hx/Date of Tetanus, Diphtheria Vaccination: Yes Hx/Date of Influenza Vaccination: No Hx/Date of Pneumococcal Vaccination: No PFSH Medical History Carpal tunnel syndrome on both sides Community acquired pne umonia Generalized anxiety disorder GERD without esophagitis (05/11/16) Surgical History Appendectomy History of - surgery (10/30/14) History of colonoscopy Family History Mother Diabetes Hyperlipidemia Father Myocardial infarction acute, Onset Age: 42 Heart disease Hyperlipidemia Hypertension Sister No problems noted. PGF No problems noted. Social History Does the Patient have a Healthcare Proxy: No Does Patient have a DNR?: No Does Patient have a Living Will?: No Advance Directives on File or in chart?: No Hx Recent Travel (where): No Smoking Status: Current every day smoker tobacco type: cigarettes quit status: considering quitting alcohol intake: never substance use type: does not use ROS Review of Systems Constitutional: Reports fever, weakness and malaise Eyes: Denies vision change and eye pain ENT: Denies mouth pain, ear discharge, nasal discharge and nasal congestion Respiratory: Reports cough and SOB; Denies sputum Cardiovascular: Denies chest pain, hypertension and edema Gastrointestinal: Denies nausea, vomiting and abdominal pain Musculoskeletal: Denies neck pain Skin/Breasts: Denies rash and lesions Neurologic: Denies weakness, numbness and headache Physical Exam General Limitations: no limitations General appearance: alert and in no apparent distress Head Head exam: Present atraumatic and n ormocephalic Eye Eye exam: Present normal apperance, PERRL and EOMI ENT ENT exam: Present normal exam and normal orophraynx Neck Neck exam: Present normal inspection and tenderness Respiratory Respiratory exam: Present normal lung sounds bilaterally and rales Cardiovascular Cardiovascular Exam: Present regular rate, normal rhythm and normal heart sounds GI/Abdominal GI/Abdominal exam: Present Abd soft, bowel sounds present all quadrents; Absent distended, tenderness, guarding and rebound Extremities Exam Extremities exam: Present normal inspection, Full ROM without tenderness, capillary refill brisk andfull ROM; Absent tenderness Back Exam Back exam: Present normal inspection and full ROM Neurological Exam Neurological exam: Present alert, oriented X3, CN II-XII intact and normal gait; Absent altered Skin Skin exam: Present warm, dry and intact Vital Signs Vital Signs: Vital Signs 08/26/20 00:09 08/26/20 00:33 Temperature 98.5 F 98.5 F Pulse Rate 76 76 Respiratory Rate 20 20 Blood Pressure 156/75 156/75 O2 Sat by Pulse Oximetry 96 96 MDM (comprehensive) Lab Data Labs: Microbiology 08/26/20 00:40 Nasopharyngeal Influenza-Like Illness (PCR) - Final No Organisms Detected 08/26/20 00:40 Nasopharyngeal - Final Medical Decision Making Free Text/Narative:: 29M presenting for myalgia, fever, cough, congestion, back aches and anosmia and lack of taste. Constellation of symptoms are concerning for COVID-19 considering these recent rise in prevalence int region. His CXR does not reveal any CP disease or infiltrates. His COVID 19 PCR result was negative, however, given his symptoms and the loss of taste and smell having a strong correlation with COVID-19, I am concerned that this may be a false negative. He does not exhibit any clinical features of a bacterial infection. His vitals are stable and he felt much better after receiving Motrin and Tylenol. Considering these findings, would recommend that he continue to quarantine and perhaps re-test in one week. MEMO discussed and he verbalized understanding. Plan Visit Medications Administered ED medications:: Medications Discontinued Medications Generic Name Dose Route Start Last Admin Trade Name Freq PRN Reason Stop Dose Admin Acetaminophen 650 mg 08/26/20 00:10 08/26/20 01:32 Acetaminophen 325 Mg Tab PO 08/26/20 00:11 650 mg 1T ONE Administration Ibuprofen 600 mg 08/26/20 00:10 08/26/20 01:31 Ibuprofen 600 Mg Tab PO 08/26/20 00:11 600 mg 1T ONE Administration Other Medications: Discontinued: meloxicam W/FOOD Discontinued Reason: Patient Reported 7.5 - 15 mg (0.5 - 1 x 15 mg) PO QDAY 30 tabs 2RF G56.03 famotidine Discontinued Reason: Patient Reported 40 mg PO BID PRN 60 tabs 2RF heartburn K21.9 arm brace Discontinued Reason: Patient Reported As directed 2 ea 0RF G56.03 Discharge Plan Admission/Discharge Dx Primary DC Diagnosis: Anosmia, URI ED Provider: Hayden Joy ED Status: Discharged Time Seen by Provider: 08/26/20 00:10 Triaged At: 08/26/20 00:09 Condition Condition: Stable Discharge Detail Disposition: Home, Self-Care Discharge Education Printouts: COVID-19 (Coronavirus Disease 2019) (ED) Follow Up Visit/Referrals: Fanny Sheehan RPA-C [Primary Care Provider] - Discharge Problem: URI (upper respiratory infection) Follow Up Care/Instructions Diet/Activity/Wound Care..: As discussed, considering the current COVID-19 Pandemic, your test may be negative due to a low viral load at this time considering your lack of taste and smell and this being such a high association with COVID-19. I would recommend that you still quarantine for 14 days starting today. Continue to take Motrin 600 mg every 6 hours. Continue to take Acetaminophen 650 mg every 6 hours. Follow up with your primary care doctor. *Discharge Patient* Discharge Orders: Discharge Order (Routine); Ordered 08/26/20 Ordered By: Hayden Joy Discharge Date/Time: 08/26/20 03:13 Interventions Interventions: ED Discharge Instructions Last Done: 08/26/20 03:13 Report Signers: <Electronically signed by Hayden Joy MD> Hayden Joy MD 08/26/20 0429 Hayden Joy MD SIGNATURE DA Report Cosigners: D: NOOFA 08/26/2023 T: NOOFA 08/26/2023 CC: Fanny Sheehan Name Value Range Interpretation Code Description Data Nelly rce(s) Supporting Document(s) ID Date Data Source [id number] 08/26/2020 12:00:00 AM EST [facility] Name Value Range Interpretation Code Description Data Nelly rce(s) Supporting Document(s) SARS-CoV2 Rapid PCR Not Detected [facility] This lab was ordered by [facility] and reported by [facility]. ID Date Data Source [id number] 06/23/2020 12:00:00 AM EST [facility] Name Value Range Interpretation Code Description Data Nelly rce(s) Supporting Document(s) 2019-nCoV RNA XXX SHRUTHI+probe-Imp [facility] This lab was ordered by [facility] and reported by [facility]. ID Date Data Source [id number] 05/10/2020 08:07:[address] [facility] Patient Name: CHELA GARCIA DO B: 1990 Sex: M Pt Unit #: [id number] Location:[facility] Provider: Visit Date/Time: 05/10/20 Primary Insurance: Self Pay Secondary Insurance: Intake Vital Signs 05/10/20 08:07 Current Weight 267 lb Weight Measurement Method Standing Scale BP 128/78 Position Sitting Respiration 18 Pulse 74 Temp 98.0 F Temp Source Oral Pulse Oximetry (%) 98 Oxygen Delivery Method room air Intake Visit Reasons: Anxiety Is patient in pain?: No Allergies promethazine [From [facility]] Adverse Reaction (Intermediate, Verified 05/27/19 23:16) dystonic reaction fluoxetine Adverse Reaction (Verified 05/27/19 23:16) headaches Medications arm brace (Wrist Brace Large) As directed famotidine 40 mg PO BID PRN meloxicam 7.5 - 15 mg (0.5 - 1 x 15 mg) PO QDAY venlafaxine ER (Effexor XR) 150 mg PO DAILY PHQ-2/9 Over the last 2 weeks, how often have you been bothered by any of the following problems? 2. Feeling down, depressed, or hopeless: not at all 3. Trouble falling or staying asleep, or sleeping too much: not at all 4. Feeling tired or having little energy: several days 5. Poor appetite or overeating: not at all 6. Feeling bad about yourself - or that you are a failure or have let yourself and your family down:not at all 7. Trouble concentrating on things, such as reading the newspaper or watching television: not at all 8. Moving or speaking so slowly that other people could have noticed? - Or the opposite - being so fidgety or restless that you have been moving around a lot more than usual: not at all If you checked off any problems, how difficult have these problems made it for you to do your work, take care of things at home, or get along with other people?: not difficult at all Source: Developed by Drs. Ean Pedro, Ninfa Bermudez, Lalit Cook and colleagues, with an educational collins from [employer]. HIV Testing Offer - ages 13-64 Requirement for HIV testing offer been met?: Declines today. Pretest education received and acknowledged Coronavirus Screening Screening Have you traveled outside of [facility] [address] [facility] or [facility] in the last 14 days.: No Has patient experienced coronavirus symptoms: No [facility] Medical History (Updated 05/10/20 @ 08:39 by ANNIE Gramajo) Carpal tunnel syndrome on both sides Community acquired pneumonia Generalized anxiety disorder GERD without esophagitis (05/11/16) Surgical History Appendectomy History of - surgery (10/30/14) History of colonoscopy Family History Mother Diabetes Hyperlipidemia Father Myocardial infarction acute, Onset Age: 42 Heart disease Hyperlipidemia Hypertension Sister No problems noted. PGF No problems noted. Social History (Updated 05/10/20 @ 08:27 by ANNIE Gramajo) Does the Patient have a Healthcare Proxy: No Does Patient have a DNR?: No Does Patient have a Living Will?: No Advance Directives on File or in chart?: No Hx Recent Travel (where): No Smoking Status: Current every day smoker tobacco type: cigarettes quit status: considering quitting alcohol intake: never substance use type: does not use HPI Anxiety 29yo male here for f/u on anxiety. Ciro was last seen here over 1yr ago. Ciro was initially scheduled for a physical but he was 17minlast so I advised I would see him for a regular appt and do the physical at a later date. Currently on venlafaxine ER 150mg daily. Overall has been working well for his anxiety. Last nightanxiety was bad - was around 5 kids - his 3 kids and his friends two kids. Had to get away from [facility]. KALA 7 3, PHQ 9 1 Ciro states he has been having numbness both hands RT > LT. 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 States it will botherhim when he is sleeping. Will have to switch hands when he is driving as it will bother him. No weakness. Sometimes RT hand pops and will drop things, be sore for a few hours after. Pain in hands daily, on avg 12/20. No noted swelling. No decreased ROM. No neck pain. Takes tylenol prn. Dad told him he should have his cholesterol checked as his Dad had [place] at 41. Panic attacks: No Social phobia: No Specific phobia: No Generalized anxiety: Yes Generalized anxiety: restlessness/on edge, difficulty concentrating/mind going blank, irritability and muscle tension Previous psychiatric history: No History of suicidal ideation: No History of suicide attempt: No Medically hospitalized: No History of self injurious behavior: No Review of Systems Const Denies chills, Reports fatigue (working 90 hrs/wk), Denies fever(s), Reports headache(s) (seldom), Denies poor appetite and Reports weight gain (16lbs since last o.v.) ENT Reports headache(s) (seldom) Card Denies chest pain Resp Denies cough and Denies wheezing GI Denies abdominal pain, Denies change in stool character, Reports heartburn (2-3x/wk - takes chewabletums w/relief), Denies nausea and Denies vomiting Denies change in libido Neuro Reports headache(s) (seldom) Psych Denies change in appetite, Denies change in libido, Denies depression, Denies difficulty concentrating, Denies auditory hallucinations, Denies irritability, Denies anhedonia, Denies panic attacks, Denies paranoia, Denies visual hallucinations and Denies suicidal ideation Endo Denies change in libido and Reports fatigue (working 90 hrs/wk) Aller/Immun Denies wheezing Exam Const General: cooperative, healthy appearing, comfortable, no acute distress, well developed and well groomed Nutritional Appearance: obese Eyes Conjunctivae: conjunctivae normal EOM: EOM intact bilaterally Neck Neck: no lymphadenopathy Resp Effort Inspection: normal respiratory effort Auscultation: clear to auscultation bilaterally, no crackles, no rhonchi and no wheezes Cardio Rhythm: regular rhythm Heart Sounds: S1 normal and S2 normal Musc Cervical Spine: cervical ROM normal, no cervical muscular tenderness, no pain with cervical ROM and no cervical spinal tenderness Other: (+) PAHLEN MANEUVER, (+) TINEL WRISTS BILAT, 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 (2) Carpal tunnel syndrome on both sides: Status: Chronic Code(s): G56.03 - Carpal tunnel syndrome, bilateral upper limbs SNOMED Code(s): 65125376 Category: Medical Plan - ANNIE Gramajo: Defers nerve conduction study at this time. trial of wrist braces and meloxicam. Advised not to take any other NSAIDs. Discussed possible side effects. Advised to take with food. Medications: New: meloxicam W/FOOD 7.5 - 15 mg (0.5 - 1 x 15 mg) PO QDAY 30 tabs 2RF arm brace (W rist Brace Large) As directed 2 ea 0RF (3) GERD without esophagitis: Status: Chronic Onset Date: 05/11/16 Code(s): K21.9 - Gastro- esophageal reflux disease without esophagitis SNOMED Code(s): 101971614 Category: Medical Plan - ANNIE Gramajo: Famotidine 40mg bid prn for heartburn/reflux. Medications: New: famotidine 40 mg PO BID PRN 60 tabs 2RF heartburn Additional Comments Additional Comments: F/u 2-3months for PE. Labs ordered to do prior to appt. Defers help with quitting smoking at this time. Advised to contact office if questions/concerns arise or s/s do not improve/worsen. Orders Other Medications: Discontinued: azithromycin (Zithromax) Discontinued Reason: MD Order 500 mg PO ONCE 1 tab 0RF TONIGHT cefpodoxime must administer with a meal/food Discontinued Reason: MD Order 200 mg PO BID 10 tabs 0RF Start tonight Other Orders: Orders: CBC W AUTO DIFF 1 Month Z00.00 CMP 1 Month Z00.00 LIPID PANEL 1 Month Z00.00 TSH 1 Month Z00.00 Vitamin D 25-OH 1 Month R53.83 Electronically Signed By: <Electronically signed by Gabriella Irizarry> Date/Time Signed: 05/10/20 0848 Name Value Range Interpretation Code Description Data Nelly rce(s) Supporting Document(s) Procedure Social History Code Duration Value Status Description Data Source(s ) 08/26/2020 12:42:00 AM EST Current every day smoker co mpleted Current every day smoker [facility] Smoking 08/26/2020 12:42:00 AM EST Current every day smoker co mpleted Current every day smoker [facility] 08/26/2020 12:31:19 AM EST No completed No [facility] 08/26/2020 12:31:19 AM EST No completed No [facility] 05/10/2020 08:27:51 AM EDT Current every day smoker co mpleted Current every day smoker [facility] Smoking 05/10/2020 08:27:00 AM EDT Current every day smoker co mpleted Current every day smoker [facility]
[2021-06-23] MEDS ORDERED: LIDOCAINE 2% W/EPINEPHRINE 20ML VIAL **PRES FREE INJ ONE (11:15)
[2021-06-23] MEDS ORDERED: IBUPROFEN 400MG TAB PO ONE (11:20)
[2021-06-23] MEDS ORDERED: BOOSTRIX/ADACEL VACCINE (DIPHTH/PERTUSS/ACELL/TETANUS) 0.5ML SYR IM ONE (11:55)
[2021-06-23] MEDS ORDERED: POLYSPORIN TOPICAL OINTMENT 15GM TOP ONE (11:55)
--- OUTSIDE RECORDS SUMMARY | 2021-06-23 12:32 | CCD ---
Author Author [facility] Organization [facility] Address Unknown Phone Unavailable Care Team Providers Care Painter And Paperhanger Apprentice Name Role Phone Genie Vigil CUSTOMER SERVICE ADVISOR Unavailable Unavailable Genie Vigil CUSTOMER SERVICE ADVISOR Unavailable Unavailable Genie Vigil CUSTOMER SERVICE ADVISOR Unavailable Unavailable Genie Vigil CUSTOMER SERVICE ADVISOR Unavailable Unavailable Genie Vigil CUSTOMER SERVICE ADVISOR Unavailable Unavailable Genie Vigil CUSTOMER SERVICE ADVISOR Unavailable Unavailable Genie Vigil CUSTOMER SERVICE ADVISOR Unavailable Unavailable Genie Vigil CUSTOMER SERVICE ADVISOR Unavailable Unavailable Genie Vigil CUSTOMER SERVICE ADVISOR Unavailable Unavailable Genie Vigil CUSTOMER SERVICE ADVISOR Unavailable Unavailable Genie Vigil CUSTOMER SERVICE ADVISOR Unavailable Unavailable Genie Vigil CUSTOMER SERVICE ADVISOR Unavailable Unavailable Genie Vigil CUSTOMER SERVICE ADVISOR Unavailable Unavailable Genie Vigil CUSTOMER SERVICE ADVISOR Unavailable Unavailable Yaritza, Genie CUSTOMER SERVICE ADVISOR Unavailable Unavailable Yaritza, Genie CUSTOMER SERVICE ADVISOR Unavailable Unavailable Yaritza, Genie CUSTOMER SERVICE ADVISOR Unavailable Unavailable Yaritza, Genie CUSTOMER SERVICE ADVISOR Unavailable Unavailable Yaritza, Genie CUSTOMER SERVICE ADVISOR Unavailable Unavailable Yaritza, Genie CUSTOMER SERVICE ADVISOR Unavailable Unavailable Yaritza, Genie CUSTOMER SERVICE ADVISOR Unavailable Unavailable Yaritza, Genie CUSTOMER SERVICE ADVISOR Unavailable Unavailable Yaritza, Genie CUSTOMER SERVICE ADVISOR Unavailable Unavailable Yaritza, Genie CUSTOMER SERVICE ADVISOR Unavailable Unavailable Yaritza, Genie CUSTOMER SERVICE ADVISOR Unavailable Unavailable Yaritza, Genie CUSTOMER SERVICE ADVISOR Unavailable Unavailable Yaritza, Genie CUSTOMER SERVICE ADVISOR Unavailable Unavailable Yaritza, Genie CUSTOMER SERVICE ADVISOR Unavailable Unavailable Yaritza, Genie CUSTOMER SERVICE ADVISOR Unavailable Unavailable Yaritza, Genie CUSTOMER SERVICE ADVISOR Unavailable Unavailable Yaritza, Genie CUSTOMER SERVICE ADVISOR Unavailable Unavailable Yaritza, Genie CUSTOMER SERVICE ADVISOR Unavailable Unavailable Yaritza, Genie CUSTOMER SERVICE ADVISOR Unavailable Unavailable Yaritza, Genie CUSTOMER SERVICE ADVISOR Unavailable Unavailable Yaritza, Genie CUSTOMER SERVICE ADVISOR Unavailable Unavailable Yaritza, Genie CUSTOMER SERVICE ADVISOR Unavailable Unavailable Hayden Joy MD Unavailable Unavailable [...] is protected by Article 27-F of the [facility] Public Health law. If you continue you may have access to information: Regarding HIV / AIDS; Provided by facilities licensed or operated by the [facility] Office of Mental Health; or Provided by the [facility] Office for People With Developmental Disabilities. If such information is present, then the following [facility] mandated warning applies: This information has been [...] law may result in a fine or mcc sentence or both. A general authorization for the release of medical or other information is NOT sufficient authorization for further disc losure. Allergies and Adverse Reactions Type Description Substance Reaction Status Data Source(s ) Propensity to adverse reactions PHENERGAN PHENERGAN muscle stiffness and twitching [facility] Drug allergy fluoxetine fluoxetine headaches U [facility] Drug allergy promethazine promethazine dystonic reaction MO [facility] Family History Family Member Name Family Member Gender Family Member Status Date o f Status Description Data Source(s) Unknown Condition [facility] Unknown Condition [facility] Unknown Condition [facility] Unknown Condition [facility] Unknown Condition [facility] Unknown Condition [facility] Unknown Condition [facility] Unknown Condition [facility] Encounters Encounter Providers Location Date Indications Data Source(s ) Emergency Attender: August Morgan MDConsultant: Genie Vigil NP 12/07/2020 02:57:00 PM EDT - 12/07/2020 04:11:00 PM EDT [facility] ital Patient discharged. Emergency Attender: Hayden Joy MD 08/13 12:08:00 AM EST - 08/26/2020 03:13:00 AM EST SOB, NO TASTE OR SMELL,R/O COVID [facility] SOB, NO TASTE OR SMELL,R/O COVID Patient discharged. Outpatient Attender: Fanny Cervanteserrer: Fanny SALDIVAR 05/10/2020 08:04:00 AM EDT - 05/10/2020 08:41:00 AM EDT [facility] Immunizations Vaccine Date Status Description Data Source(s) COVID-19 VACCINE Pfizer 05/30/2021 12:00:00 AM EDT completed [facility] Vaccine Series Complete: NOThis Data was Submitted to [facility] [place] [employer]. Medications Medication Brand Name Start Date Product Form Dose Route Admi nistrative Instructions Pharmacy Instructions Status Indications Reaction Description Data Source(s) 24 HR venlafaxine 150 MG Extended Releas e Oral Capsule Venlafaxine (Effexor Xr) 150 mg capsule,extended release 24hr Venlafaxine (Effexor Xr) 150 mg capsule,extended release 24hr 07/28/2020 02:57:23 PM EST 150 MG completed [facility] Arm Brace (Wrist Brace Large) [facility] 05/10/2020 08:40:13 AM EDT 0 active [facility] Arm Brace (Wrist Brace Large) [facility] 05/10/2020 08:40:13 AM EDT 0 completed [facility] Famotidine 40 MG Oral Tablet Famotidine 05/10/2020 08:39:41 AM EDT 40 MG completed [facility] Famotidine 40 MG Oral Tablet Famotidine 05/10/2020 08:39:41 AM EDT 40 MG active [facility] meloxicam 15 MG Oral Tablet Meloxicam Meloxicam 05/10/2020 08:37 :53 AM EDT MG active [facility] meloxicam 15 MG Oral Tablet Meloxicam Meloxicam 05/10/2020 08:37 :53 AM EDT MG completed [facility] 24 HR venlafaxine 150 MG Extended Releas e Oral Capsule Venlafaxine (Effexor Xr) 150 mg capsule,extended release 24hr Venlafaxine (Effexor Xr) 150 mg capsule,extended release 24hr 04/13/2020 02:44:16 PM EDT 150 MG [facility] cefpodoxime 200 MG Oral Tablet Cefpodoxime Cefpodoxime 05/29/2019 11:08:38 AM EDT 200 MG completed [facility] cefpodoxime 200 MG Oral Tablet Cefpodoxime Cefpodoxime 05/29/2019 11:08:38 AM EDT 200 MG [facility] Azithromycin 500 MG Oral Tablet [Zithrom ax] Azithromycin (Zithromax) 500 mg tablet Azithromycin (Zithromax) 500 mg tablet 05/29/2019 11:06:46 AM ED T 500 MG completed [facility] Azithromycin 500 MG Oral Tablet [Zithrom ax] Azithromycin (Zithromax) 500 mg tablet Azithromycin (Zithromax) 500 mg tablet 05/29/2019 11:06:46 AM ED T 500 MG completed [facility] Insurance Providers Payer name Policy type / Coverage type Policy ID Covered constitution party ID Covered constitution party's relationship to murphy Policy Murphy Plan Information SELF PAY COLE PAY Patient COLE PAY POMCO [id number] SP [id number] LUCERO [id number] SP [id number] EMEDNY [id number] SP [id number] UNHC AMERICHOICE XIX -HMO [id number] 18 [id number] [place] [id number] 18 [id number] [place] [id number] S [id number] MEDICAID [id number] SP [id number] SELF PAY UNAVAILABLE UNAVAILA BLE UNHC COMMUNITY PLAN MCDO [id number] SP [id number] [facility](MCAID) P [id number] S [id number] [facility](MCAID) P [id number] S [id number] [facility](MCAID) P UNAVAILABLE S UNAVAILABLE [facility] [id number] SP [id number] MEDICAID -O/P EMERGENCY ROOM [id number] SELF PAY ONLY [id number] SP [id number] Problems, Conditions, and Diagnoses Code Display Name Description Problem Type Effective Dates Data Source(s) [id number] Allergy, unspecified, initial encounter Allergy, unspecified, initial encounter Diagnosis 12/07/2020 02:57:00 PM EDT [facility] L509 Urticaria, unspecified Urticaria, unspecified Diagnosi s 12/07/2020 02:57:00 PM EDT [facility] R21 Rash and other nonspecific skin eruption Rash and other nonspecific skin eruption Diagnosis 12/07/2020 02:57:00 PM EDT [facility] Surgeries/Procedures Procedure Description Date Indications Data Source(s) Plain chest X-ray (procedure) 08/26/2020 12:10:[address] [facility] 08/26/2020 12:00:00 AM EST L [facility] Influenza-Like Illness (PCR) 08/26/2020 12:00:00 AM ES T [facility] Results ID Date Data Source [id number] 12/07/2020 02:57:00 PM EDT [facility] 1 OrderSheet [facility] Emergency Department [address] [place] [address] Phone #: ext- [phone] 12/07/2020 14:56 Patient: [...] rce(s) Supporting Document(s) ID Date Data Source [id number] 12/07/2020 02:57:00 PM EDT [facility] 1 Medication Reconciliation Report [facility] Emergency Department [address] [place] [address] Phone #: [phone]- [phone] 12/07/2020 14:56 Patient: CHELA GARCIA Sex: M [...] Dispense 10 tablet. Refills: 0. Substitutionpermitted.Pharmacy - [facility] [address] [facility] [address] [place] [address]. FaxNumber: .EpiPen 0.3 mg/0.3 mL injection, auto-injector Administer 1 pen injector single dose for 1 days --Dispense 2 Pen injector. Refills: 0. Substitution permitted.Pharmacy - [facility] [address] [place] [address] ; [place] [address]. . -- August Morgan Name Value Range Interpretation Code Description Data Nelly rce(s) Supporting Document(s) ID Date Data Source [id number] 12/07/2020 02:57:00 PM EDT [facility] 1 Medication Administration Record [facility] Emergency Department [address] [place] [address] Phone #: ext- [phone] 12/07/2020 14:56 Patient: CHELA GARCIA Sex: M [...] Dispensed: 50 mL bagStop Site: #1 left ipucpdy75:[id number] 12/07/2020Frank Galvin R.N.Given EPINEPHRINE [IM] EPINEPHrine IM 1:1000 (1mg/1mL)15:10 12/07/2020 Dose: 0.3 mg IM Amp: 0.3 mg (NOW x1, HIGHFrank Galvin R.N. ALERT ME DICATION)Start NS [IV] NS IV 1000 mL Bolus: : Bolus [id number] 12/07/2020 Dose: IV Fluids mL (X1)Frank Galvin R.N. Rate: 1000 mL/hr over 60 minute(s)---- Dispensed: 1000 mL bagStop Site: #1 left :06 12/07/2020Frank Galvin R.N. Name Value Range Interpretation Code Description Data Nelly rce(s) Supporting Document(s) ID Date Data Source [id number] 12/07/2020 02:57:00 PM EDT [facility] 1 General Instructions [facility] Emergency Department [address] [place] [address] Phone #: ext- [phone] 12/07/2020 14:56 Patient: CHELA GARCIA Sex: M [...] Dispense 10 tablet. Refills: 0. Substitutionpermitted.Pharmacy - [facility] [address] [place] [address]. Phone: .EpiPen 0.3 mg/0.3 mL injection, auto-injector Administer 1 pen injector single dose for 1 days --Dispense 2 Pen injector. Refills: 0. Substitution permitted.Pharmacy - [facility] 8763 - [address] [address]. FaxNumber: .Understanding of the discharge instructions verbalized by patient.Follow-up with: Fanny Sheehan, , , [facility], , [place], [address] Follow up in two days as needed. [...] nuts, tomatoes, or berries 2 General Instructions [facility] Emergency Department [address] [place] [address] Phone #: ext- [phone] 12/07/2020 14:56 Patient: [...] about any side effects. 3 General Instructions [facility] Emergency Department [address] [place] [address] Phone #: ext- [phone] 12/07/2020 14:56 Patient: [...] swallowing Dizziness, weakness, or fainting 1999- 2019 [employer]. [address] [place] [address]. All rights reserved. This information is not [...] roof of the mouth 4 General Instructions [facility] Emergency Department [address] [place] [address] Phone #: ext- [phone] 12/07/2020 14:56 Patient: CHELA GARCIA Sex: M [...] there are many others) 5 General Instructions [facility] Emergency Department [address] [place] [address] Phone #: ext- [phone] 12/07/2020 14:56 Patient: [...] products Chemicals or dyes in clothing, linen, corporate administrative assistant, hair dyes, soaps, iodineMany viruses and common [...] or sometimes worse symptoms. 6 General Instructions [facility] Emergency Department [address] [place] [address] Phone #: ext- [phone] 12/07/2020 14:56 Patient: CHELA GARCIA Sex: M [...] damage the skin. Oral diphenhydramine is an ehli-hny-syvdfew antihistamine sold at pharmacies and grocery stores. [...] swallowing, ask your provider about carryingauto-injectable epinephrine.Call [phone] General Instructions [facility] Emergency Department [address] [place] [address] Phone #: ext- [phone] 12/07/2020 14:56 Patient: [...] drainage from the site 8 General Instructions [facility] Emergency Department [address] [place] [address] Phone #: ext- [phone] 12/07/2020 14:56 Patient: CHELA GARCIA Sex: M : 1990 Age: 30y o Fever of 100.4F (38C) or above lasting for 24 to 48 hours, or as directed by your provider [employer]. [address] [place] [address]. All rights reserved. This information is not intended as asubstitute for professional medical care. Always follow your healthcare professional's instructions. You have been given the following additional information: Hives (Adult) General Allergic Reactions(Electronically signed by August Morgan 12/07/2020 16:15) Name Value Range Interpretation Code Description Data Nelly rce(s) Supporting Document(s) ID Date Data Source [id number] 12/07/2020 02:57:00 PM EDT [facility] 1 Clinical Report - Nurses [facility] Emergency Department [address] [place] [address] Phone #: ext- [phone] 12/07/2020 14:56 Patient: CHELA GARCIA Sex: M : 1990 Age: 30yTRIAGEArrived by private vehicle. Historian: patient.Acuity: LEVEL 2.Chief Complaint: ALLERGIC REACTION, SKIN RASH, ITCHING and HIVES and SWELLING andDIFFICULTY BREATHINGOnset. (45 minutes ago). 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 (x 4).SEPSIS SCREEN: SIRS SCREEN NEGATIVE. [...] harming or 2 Clinical Report - Nurses [facility] Emergency Department [address] [place] [address] Phone #: ext- [phone] 12/07/2020 14:56 Patient: [...] via site #1. --15:12/07/20 Frank Galvin R.N. bus monitor, pulse oximeter and NIBP monitor placed on patient; cafeteria monitor- Lead II; monitor alarms on. Patient gowned. Head of bed elevated. Reassurance given. Call light placed in reach. 3 Clinical Report - Nurses [facility] Emergency Department [address] [place] [address] Phone #: ext- [phone] 12/07/2020 14:56 Patient: [...] RR: 27. O2 saturation: 98%. --15:29 12/07/[address] [facility] Tech, [facility] [address] Tech1 16:06 12/07/2020 Pepcid IVPB via IV site #1 Discontinued: bag #1 upon discharge. Total amount infused: 50 mL. --16:06 12/07/20 Frank Galvin R.N. 16:06 12/07/2020 IV Fluids NS via IV site #1 Discontinued: bag #2 infused upon discharge. Total amount infused: 800 mL. --16:06 12/07/20 Frank Galvin R.N.DISPOSITION / DISCHARGE No learning barriers present. Patient verbalized understanding. Written instructions provided in [place]. The patient was discharged by the physician. [...] rce(s) Supporting Document(s) ID Date Data Source [id number] 12/07/2020 02:57:00 PM EDT [facility] 1 Clinical Report - Physicians/Mid Levels [facility] Emergency Department [address] [place] [address] Phone #: ext- [phone] 12/07/2020 14:56 Patient: CHELA GARCIA [facility]#: [id number] Sex: M : 1990 Age: 30y Time [...] is clear). 2 Clinical Report - Physicians/Mid [facility] Emergency Department [address] [place] [address] Phone #: ext- [phone] 12/07/2020 14:56 [id number] Sex[facility] M : 1990 Age: 30y Head [...] tablet. Refills: 0. Substitution permitted. Pharmacy - [facility] [address] [facility] [address] [place] [address] ; [place] [address]. . 3 Clinical Report - Physicians/Mid Levels [facility] Emergency Department [address] [place] [address] Phone #: ext- [phone] 12/07/2020 14:56 Patient: CHELA GARCIA Sex: M : 1990 Age: 30y EpiPen 0.3 mg/0.3 mL injection, auto-injector Administer 1 pen injector single dose for 1 days -- Dispense 2 Pen injector. Refills: 0. Substitution permitted. Pharmacy - [facility] [address] [place] [address]. . Understanding of the discharge instructions verbalized by patient. Follow-up with: Fanny Sheehan, , , [facility], , [place], [address] Follow up in two days as needed. Call for an appointment.(Electronically signed by August Morgan 12/07/2020 16:15) Name Value Range Interpretation Code Description Data Nelly rce(s) Supporting Document(s) ID Date Data Source [id number] 08/26/2020 03:30:00 AM EST [facility] [address] [place] [address] [phone] NAME SEX PT STATUS ACCOUNT NUMBER CHELA GARCIA [facility] ER [id number] ORDERING PHYSICIAN LOCATION MEDICAL RECORD NO. Hayden Joy MD ER [id number] ATTENDING PHYSICIAN DATE OF DATE OF EXAM/TIME [...] Trans Dt/Tm: Trans by: DT Prt Dt/Tm: [id number]: Total DLP = 0.00 mGy-cm Fluoroscopy Time (in secs): Name Value Range Interpretation Code Description Data Nelly rce(s) Supporting Document(s) ID Date Data Source [id number] 08/26/2020 01:22:00 AM [facility] Amandeep Gabrielle is a rapid, automated qualita tive anddifferentiation of Influenza type A,B and NNBF-AOP-4SGHH-RT-PCR testNORMAL VALUE IS "NOT DETECTED".Limitations of the amandeep gabrielle Influenza A/B & IVSG-JXY-8krqex method.Modifications to manufacturers recommendation and proceduresmay alter performance of the test.Negative results do not preclude Influenza A,B or SARS- MJC1sdrsubuyzu and should not be used as the [...] rce(s) Supporting Document(s) ID Date Data Source [id number] 08/26/2020 01:22:00 AM [facility] Amandeep Gabrielle is a rapid, automated qualita tive anddifferentiation of Influenza type A,B and YQRY-XFE-2OJWL-RT-PCR testNORMAL VALUE IS "NOT DETECTED".Limitations of the amandeep gabrielle Influenza A/B & SDIO-LCL-8mhbjd method.Modifications to manufacturers recommendation and proceduresmay alter performance of the test.Negative results do not preclude Influenza A,B or SARS- RZL9ebnjsropks and should not be used as the [...] Name Value Range Interpretation Code Description Data [facility] rce(s) Supporting Document(s) Extended hours FLU/COV2 NAAT GABRIELLE [facility] ID Date Data Source [id number] 08/26/2020 12:24:00 AM [facility] ED Physician Documentation NAME: CHELA GARCIA : 1990 AGE: 29 MR#: [id number] SERVICE DATE: 08/26/[address]: Hayden Joy [...] acquired pneumonia (Medical) J18.9 05/2019 - INPT [facility] Generalized anxiety disorder (Medical) F41.1 GERD without esophagitis (Medical 05/11/16) K21.9 Surgical History (Updated 02/04/19 @ 11:[address]) A ppendectomy (Surgical) History of - surgery [...] D: NOOFA 08/26/2023 T: NOOFA 08/26/2023 CC: Fanyn Sheehan Name Value Range Interpretation Code Description Data Nelly rce(s) Supporting Document(s) ID Date Data Source [id number] 08/26/2020 12:00:00 AM EST [facility] Name Value Range Interpretation Code Description Data Nelly rce(s) Supporting Document(s) SARS-CoV2 Rapid PCR Not Detected [facility] This lab was ordered by [facility] and reported by [facility]. ID Date Data Source [id number] 06/23/2020 12:00:00 AM EST [facility] Name Value Range Interpretation Code Description Data Nelly rce(s) Supporting Document(s) 2019-nCoV RNA XXX SHRUTHI+probe-Imp [facility] This lab was ordered by [facility] and reported by [facility]. ID Date Data Source [id number] 05/10/2020 08:07:00 AM EDT [facility] Patient Name: CHELA GARCIA DO B: 1990 Sex: M Pt Unit #: [id number] Location:[facility] Provider: Visit Date/Time: 05/10/20 Primary Insurance: Self [...] and colleagues, with an educational collins from [employer]. HIV Testing Offer - ages 13-64 Requirement for HIV testing offer been met?: Declines today. Pretest education received and acknowledged Coronavirus Screening Screening Have you traveled outside of [facility] or [facility] in the last 14 days.: No Has patient experienced coronavirus symptoms: No [facility] Medical History (Updated 05/10/20 @ 08:39 by [...] two kids. Had to get away from [facility]. KALA 7 3, PHQ 9 1 Ciro [...] his cholesterol checked as his Dad had [place] at 41. 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 (2) Carpal tunnel syndrome on both sides: Status: Chronic Code(s): G56.03 - Carpal tunnel syndrome, bilateral upper limbs SNOMED Code(s): 03842502 Category: Medical Plan - ANNIE Gramajo: Defers [...] esophageal reflux disease without esophagitis SNOMED Code(s): 181025161 Category: Medical Plan - ANNIE Gramajo: Famotidine [...] smoker co mpleted Current every day smoker [facility] Smoking 08/26/2020 12:42:00 AM EST Current every day smoker co mpleted Current every day smoker [facility] 08/26/2020 12:31:19 AM EST No completed No [facility] 08/26/2020 12:31:19 AM EST No completed No [facility] 05/10/2020 08:27:51 AM EDT Current every day smoker co mpleted Current every day smoker [facility] Smoking 05/10/2020 08:27:00 AM EDT Current every day smoker co mpleted Current every day smoker [facility]
[2021-06-23 12:47] VITALS: BP 149/72
== END 2021-06-23 12:48 | disposition home or self-care (01) ==
LOC: M ED 10:45
DX: S01.01XA Laceration without foreign body of scalp, initial encounter (principal); W22.8XXA Striking against or struck by other objects, initial encounter; Y92.89 Other specified places as the place of occurrence of the external cause; Y93.9 Activity, unspecified; Y99.0 Civilian activity done for income or pay; F17.200 Nicotine dependence, unspecified, uncomplicated